=== PATIENT | female | born 1970 | race African-American/Black ===

== ENCOUNTER 2018-05-24 14:31 | Emergency (ER) | payer MEDICAID ==
[~2018-05-24] VITALS: Ht 152.4 cm; Wt 72.6 kg
[~2018-05-24 14:31] MED LIST: FERROUS SULFAT325 MG ORAL; NKM
[2018-05-24 14:46] VITALS: BP 128/87
--- NOTE | 2018-05-24 14:46 | NUR ---
ED Nurse Note: Pt came in from home due to coughing with yellowish congestion x 5 days and body ache, 5/10 jaden. Will cont to monitor.
[2018-05-24] MEDS ORDERED: Albuterol/Ipratropium 3ml neb HHN ONE ×2 (15:00→15:45)
[2018-05-24] MEDS ORDERED: Benzonatate 100mg Perles ORAL ONE (15:00)
--- NOTE | 2018-05-24 15:03 | Emergency Room Report ---
History of Present Illness General Chief Complaint: Upper Respiratory Illness Source: Patient (Linwood Medina) Present Illness HPI 47-year-old female patient presents the ER complaining of cough and difficulty breathing for the past few days. Reports cough with sputum. Denies hemoptysis. Denies calf pain. Denies recent travel. Denies fever. Reports history of bronchitis. Denies abdominal pain. Denies vomiting. Denies history of cancer. Denies smoking. Denies taking control medication. Reports chest discomfort, states worse with cough, reports reproducible. Denies hx of AR. (Linwood Medina) Allergies: Coded Allergies: No Known Allergies (Unverified , 09/13/13) Patient History Past Medical History: see triage record Now: No Reviewed Nursing Documentation: PMH: Agreed; PSxH: Agreed (Linwood Medina) Nursing Documentation-PMH Past Medical History: No History, Except For Hx Cardiac Problems: No Hx Asthma: Yes Hx Cancer: No Hx Gastrointestinal Problems: Yes Hx Neurological Problems: No (Linwood Medina) Review of Systems All Other Systems: negative except mentioned in HPI (Linwood Medina) Physical Exam Vital Signs Date Time Temp Pulse Resp B/P (MAP) Pulse Ox O2 Delivery O2 Flow Rate FiO2 05/24/18 14:40 98.4 69 20 128/87 97 Room Air Sp02 EP Interpretation: reviewed, normal General Appearance: well appearing, no apparent distress, alert, GCS 15, non- toxic Head: normocephalic, atraumatic Eyes: bilateral eye normal inspection, bilateral eye PERRL ENT: hearing grossly normal, normal pharynx, no angioedema, normal voice, uvula midline, moist mucus membranes Neck: full range of motion Respiratory: lungs clear, no rhonchi, no respiratory distress, no accessory muscle use, no wheezing, decreased breath sounds, speaking full sentences, other - chest TTP Cardiovascular #1: regular rate, rhythm, no edema Musculoskeletal: back normal, digits/nails normal, gait/station normal, normal range of motion, non-tender Neurologic: alert, oriented x3, responsive, motor strength/tone normal, sensory intact Psychiatric: mood/affect normal (Linwood Medina) Medical Decision Making PA Attestation Dr. Ross is my supervising Physician whom patient management has been discussed with. (Linwood Medina) Diagnostic Impression: Primary Impression: Asthma exacerbation Qualified Codes: J45.41 - Moderate persistent asthma with (acute) exacerbation Additional Impressions: Upper respiratory infection Qualified Codes: J06.9 - Acute upper respiratory infection, unspecified Abnormal EKG Atypical chest pain ER Course Pt presents to ED c/o cough and breathing difficulty symptoms, reproducible chest discomfort. DDX considered but are not limited to asthma, viral URI, influenza, bronchitis, pneumonia, PE, costochondritis, pericarditis. no calf pain, no recent travel, no hemoptysis, no tachycardia, low suspicion for PE per Well's criteria. VITAL SIGNS are WNL, patient is afebrile. Ordered breathing treatment and medication. ER COURSE Provided with Malone for pain symptoms. Patient boyfriend in the ER, will drive patient home. CXR shows no acute disease, no consolidation, no crackles, afebrile, low suspicion for PNA. EKG shows t wave depression in anterior leads, no ST elevations, no a.fibrillation. Patient provided with prednisone Duoneb breathing treatment provided. Following treatment patient states no longer having difficulty with breathing. Patient is resting comfortably in no acute distress. CBC and CMP unremarkable Troponin negative, low suspicion for AR. D-dimer negative, low suspicion for PE, does not require CTA BNP WNL Low suspicion for AR or CHF exacerbation. Follow-up with cardiology for further treatment and referral as needed. On PE, chest is TTP; chest pain likely musculoskeletal in nature secondary to cough. Patient instructed to take NSAIDs as needed for pain symptoms. ER precautions given. DISCHARGE: -Rx given for Prednisone. First dose provided in ER, begin taking tomorrow. -Rx provided for Albuterol MDI. -Rx provided for Tessalon Perles Rx provided for Robaxin Rx provided for Tylenol At this time pt is stable for d/c to home. Patient is resting comfortably in no acute distress, nontoxic appearing, able to answer questions without difficulty. Patient to take medications as instructed Will provide with patient care instructions and any necessary prescriptions. Care plan and follow-up instructions provided. Patient instructed to follow-up with primary care provider in 3 - 5 days. Patient questions asked and answered. Patient reports understanding and agreement to treatment plan. ER precautions given. Patient instructed to return to ER immediately for any new or worsening of symptoms including but not limited to increasing SOB, persistent fever. - Please note that this Emergency Department Report was dictated using [employer] scraper technology software, occasionally this can lead to erroneous entry secondary to interpretation by the dictation equipment. Labs Test 05/24/18 16:45 05/24/18 18:00 White Blood Count 7.6 K/UL (4.8-10.8) Red Blood Count 5.03 M/UL (4.20-5.40) Hemoglobin 13.5 G/DL (12.0-16.0) Hematocrit 41.3 % (37.0-47.0) Mean Corpuscular Volume 82 FL (80-99) Mean Corpuscular Hemoglobin 26.9 PG (27.0-31.0) Mean Corpuscular Hemoglobin Concent 32.8 G/DL (32.0-36.0) Red Cell Distribution Width 12.1 % (11.6-14.8) Platelet Count 323 K/UL (150-450) Mean Platelet Volume 7.0 FL (6.5-10.1) Neutrophils (%) (Auto) 63.8 % (45.0-75.0) Lymphocytes (%) (Auto) 28.5 % (20.0-45.0) Monocytes (%) (Auto) 4.8 % (1.0-10.0) Eosinophils (%) (Auto) 1.5 % (0.0-3.0) Basophils (%) (Auto) 1.3 % (0.0-2.0) Sodium Level 139 MMOL/L (136-145) Potassium Level 3.8 MMOL/L (3.5-5.1) Chloride Level 101 MMOL/L (98-107) Carbon Dioxide Level 27 MMOL/L (21-32) Anion Gap 11 mmol/L (5-15) Blood Urea Nitrogen 10 mg/dL (7-18) Creatinine 0.9 MG/DL (0.55-1.30) Estimat Glomerular Filtration Rate > 60 mL/min (>60) Glucose Level 121 MG/DL (74-106) Calcium Level 9.6 MG/DL (8.5-10.1) Total Bilirubin 0.2 MG/DL (0.2-1.0) Aspartate Amino Transf (AST/SGOT) 21 U/L (15-37) Alanine Aminotransferase (ALT/SGPT) 25 U/L (12-78) Alkaline Phosphatase 66 U/L (46-116) Total Creatine Kinase 221 U/L (26-308) Creatine Kinase MB 0.9 NG/ML (0.0-3.6) Creatine Kinase MB Relative Index 0.4 Troponin I 0.000 ng/mL (0.000-0.056) Pro-B-Type Natriuretic Peptide 15 pg/mL (0-125) Total Protein 8.4 G/DL (6.4-8.2) Albumin 4.0 G/DL (3.4-5.0) Globulin 4.4 g/dL Albumin/Globulin Ratio 0.9 (1.0-2.7) D-Dimer 0.22 mg/L FEU (0.00-0.49) (Linwood Medina P.A.) ER Course Please see the above note. Based on the EKG workup was expanded. I agree with the treatment plan. (Fransisco Ross MD) EKG Diagnostic Results Rate: normal Rhythm: NSR ST Segments: other - Depressed ST waves in anterior leads ASA given to the pt in ED: No PA Scribe Text Vic Medina PA-C (Linwood Medina P.A.) Rhythm Strip Diag. Results EP Interpretation: yes Rate: 78 Rhythm: NSR, no PVC's, no ectopy PA Scribe Text Vic Medina PA-C (Linwood Medina P.A.) Chest X-Ray Diagnostic Results Chest X-Ray Diagnostic Results : Chest X-Ray Ordered: Yes # of Views/Limited/Complete: 1 View Indication: Chest Pain EP Interpretation: Yes PA Xray: Interpretation reviewed, by supervising MD, and agrees with findings. Interpretation: no consolidation, no effusion, no pneumothorax, no acute cardiopulmonary disease Impression: No acute disease PA Scribe Text Vic Medina PA-C (Linwood Medina P.A.) Chest X-Ray Diagnostic Results : Electronically Signed by: Raquel Nunez documentation of Xray reviewed by me and is accurate, Fransisco Ross MD (Fransisco Ross MD) Last Vital Signs Date Time Temp Pulse Resp B/P (MAP) Pulse Ox O2 Delivery O2 Flow Rate FiO2 05/24/18 14:46 98.4 69 20 128/87 97 Room Air Status: improved (Linwood Medina P.A.) Last Vital Signs Date Time Temp Pulse Resp B/P (MAP) Pulse Ox O2 Delivery O2 Flow Rate FiO2 05/24/18 18:07 98.4 05/24/18 17:05 72 18 122/82 98 Room Air Status: improved (Fransisco Ross MD) Disposition: HOME, SELF-CARE Condition: Stable Scripts Methocarbamol* (ROBAXIN*) 500 Mg Tablet 500 MG PO TID, #21 TAB 0 Refills Prov: Linwood Medina.A. 05/24/18 Benzonatate* (TESSALON PERLE*) 100 Mg Capsule 100 MG ORAL THREE TIMES A DAY, #20 PERLE Prov: Linwood Medina.A. 05/24/18 Albuterol Sulfate* (ALBUTEROL SULFATE MDI*) 8.5 Gm Hfa.aer.ad 2 PUFF INH Q6H, #1 INH 0 Refills Prov: Linwood Medina.A. 05/24/18 Acetaminophen* (TYLENOL EXTRA STRENGTH*) 500 Mg Tablet 500 MG ORAL Q8H PRN for Prn Headache/Temp > 101, #30 TAB 0 Refills Prov: Linwood Medina.A. 05/24/18 Prednisone* (PREDNISONE*) 20 Mg Tablet 40 MG ORAL DAILY for 4 Days, #8 TAB Prov: Linwood Medina.A. 05/24/18 Patient Instructions: Asthma Attack Prevention, Costochondritis, [id number], Nonspecific Chest Pain, [id number], Upper Respiratory Infection, Adult Additional Instructions: Followup with primary care provider in 2-3 days. Discuss referral to cardiology for further evaluation and treatment. Take medications as directed. Patient questions asked and answered. ER precautions given, patient instructed to return to ER immediately for any new or worsening of symptoms. Linwood Medina May 24, 2018 15:03 Fransisco Ross MD May 26, 2018 05:52
--- NOTE | 2018-05-24 15:59 | Diagnostic Imaging Report ---
Indication: Chest pain Comparison: 09/13/2013 A single view chest radiograph was obtained. Findings: Cardiomediastinal appearance is within normal limits for age. The lungs are clear. Pulmonary vascularity is appropriate. The diaphragmatic contour is smooth and costophrenic angles are sharp. No pleural effusions are identified. The bones are unremarkable. Impression: No acute findings
[2018-05-24] MEDS ORDERED: ALBUTEROL SULF8.5 GM INH (16:20)
[2018-05-24] MEDS ORDERED: PREDNISONE20 MG ORAL (16:20)
[2018-05-24] MEDS ORDERED: TYLENOL EXTRA500 MG ORAL (16:20)
[2018-05-24] MEDS ORDERED: TESSALON PERLE100 MG ORAL (16:20)
[2018-05-24] MEDS ORDERED: Methocarbamol 500mg tab ORAL ONE (16:45)
--- NOTE | 2018-05-24 16:56 | NUR ---
ED Nurse Note: Blood has been collected and sent to lab.
--- NOTE | 2018-05-24 17:00 | NUR ---
ED Nurse Note: patient is being discharged from ED alert and oriented x4, ambulatory with a steady gait, VSS, patient acknowledged the need to follow up with PMD within a week if symptoms dont improve, patient's prescriptions in hand, ID band and IV line removed
[2018-05-24 17:05] VITALS: BP 122/82
[2018-05-24 17:19] LABS: BASOPHILS % (AUTO) 1.3 % (0.0-2.0); EOSINOPHILS % (AUTO) 1.5 % (0.0-3.0); HEMATOCRIT 41.3 % (37.0-47.0); HEMOGLOBIN 13.5 G/DL (12.0-16.0); LYMPHOCYTES % (AUTO) 28.5 % (20.0-45.0); MEAN CORPUSCULAR VOLUME 82 FL (80-99); MONOCYTES % (AUTO) 4.8 % (1.0-10.0); NEUTROPHILS % (AUTO) 63.8 % (45.0-75.0); PLATELET COUNT 323 K/UL (150-450); RED BLOOD COUNT 5.03 M/UL (4.20-5.40); RED CELL DISTRIBUTION WIDTH 12.1 % (11.6-14.8); WHITE BLOOD COUNT 7.6 K/UL (4.8-10.8)
[2018-05-24] MEDS ORDERED: Norco 5mg/325mg tab ORAL ONE (17:30)
[2018-05-24 17:50] LABS: ANION GAP 11 mmol/L (5-15); BLOOD UREA NITROGEN 10 mg/dL (7-18); CALCIUM 9.6 MG/DL (8.5-10.1); CARBON DIOXIDE 27 MMOL/L (21-32); CHLORIDE 101 MMOL/L (98-107); CREATININE 0.9 MG/DL (0.55-1.30); POTASSIUM 3.8 MMOL/L (3.5-5.1); SODIUM 139 MMOL/L (136-145)
[2018-05-24 18:23] LABS: ALANINE AMINOTRANSFERASE 25 U/L (12-78); ALBUMIN/GLOBULIN RATIO 0.9 (1.0-2.7); ALKALINE PHOSPHATASE 66 U/L (46-116); ASPARTATE AMINO TRANSFERASE 21 U/L (15-37); BILIRUBIN,TOTAL 0.2 MG/DL (0.2-1.0); CKMB 0.9 NG/ML (0.0-3.6); CREATINE KINASE 221 U/L (26-308)
[2018-05-24] MEDS ORDERED: ROBAXIN500 MG PO (19:37)
== END 2018-05-24 17:00 | disposition home or self-care (01) ==
LOC: EMR 16:32
DX: J45.41 Moderate persistent asthma with (acute) exacerbation (principal); J06.9 Acute upper respiratory infection, unspecified; R94.31 Abnormal electrocardiogram [ECG] [EKG]; R07.89 Other chest pain
CPT/HCPCS: 36415; 71045; 80053; 82550; 82553; 83880; 84484; 85025; 85379; 94640; 94664; 99284; J7512; J7620